=== PATIENT | female | born 1955 | race Caucasian/White ===

== ENCOUNTER → 2016-07-19 | Outpatient (CLI) | payer MEDICARE, OTHER ==
--- NOTE | 2016-07-19 09:16 | CT ---
EXAMINATION TYPE: CT abdomen pelvis w con DATE OF EXAM: 07/19/2016 8:36 AM COMPARISON: NONE HISTORY: 60-year-old female generalized abdominal pain. TECHNIQUE: Contiguous axial scanning of the abdomen and pelvis following administration of 100 ml Omn ipaque 300 IV contrast. Delayed images through the kidneys and coronal/sagittal reconstructions perf ormed. CT DLP: 1459 mGycm Automated exposure control for dose reduction was used. FINDINGS: The heart is normal size without pericardial effusion. Some strandy atelectasis at the peripheral bas ilar left lower lobe and some patchy atelectasis inferior lingula. No pleural effusion. Moderate to large hiatal hernia. No focal liver lesion or biliary ductal dilatation. Portal venous system is patent. Adrenal glands, kidneys, spleen, and pancreas appear within normal limits. Symmetric uptake and excre tion of contrast by both kidneys. Tiny fatty umbilical hernia. No dilated small bowel, free fluid, or free air. There is some fold thickening seen at the hepatic flexure, refer to sagittal image 21 and 23. There i s scattered colonic diverticulosis but no clear inflammatory change centered at a diverticulum to sug gest acute diverticulitis. Oral contrast has progressed to the distal sigmoid. No significant stool b urden. A few nonenlarged to borderline enlarged right mesenteric lymph nodes are present measuring up to 6 m m, axial image 39 and coronal image 29. Bladder is urine distended. Uterus and ovaries are visualized. No abnormal fluid collection in the pe lvis or pelvic lymphadenopathy. Pelvic phleboliths are present. Bones: Mild degenerative changes at the hips. Nonspecific 2.1 cm sclerotic lesion within the left sac rum, axial image 52. Degenerative changes mid to lower lumbar spine. No osseous destructive process. IMPRESSION: 1. SOME MILD FOLD THICKENING AT THE HEPATIC FLEXURE AND SOME BORDERLINE ENLARGED RIGHT ABDOMINAL MESE NTERIC LYMPH NODES WHICH ARE PROBABLY REACTIVE. CORRELATE FOR A MILD NONSPECIFIC COLITIS. FOLLOW-UP C OLONOSCOPY IF ROUTINE SCREENING NOT ALREADY PERFORMED. 2. A 2.1 CM SCLEROTIC LESION WITHIN THE LEFT SACRUM HAS OVERALL NONAGGRESSIVE FEATURES. A BENIGN ENTI TY IS FAVORED. EITHER [address] MONTH FOLLOW-UP CT OR BONE SCAN CAN BE CONSIDERED. 3. BACKGROUND OF MILD DIFFUSE COLONIC DIVERTICULOSIS. 4. MODERATE TO LARGE HIATAL HERNIA.
== END | disposition home or self-care (01) ==
LOC: RADCTMAIN 08:06
PROVIDERS: ATTEND Internal Medicine Hematology & Oncology
DX: K63.89 Other specified diseases of intestine (principal); K44.9 Diaphragmatic hernia without obstruction or gangrene; R10.84 Generalized abdominal pain
CPT/HCPCS: 74177; Q9967

== ENCOUNTER → 2016-08-03 | Outpatient (CLI) | payer MEDICARE, OTHER ==
[2016-08-03 17:58] LABS: Basophils # (A) 0.1 k/uL (0-0.2); Basophils % (A) 1 %; CH 23.6; Eosinophils # (A) 0.1 k/uL (0-0.7); Eosinophils % (A) 2 %; HCT 33.2 % (34.0-46.0); HDW 3.13; HGB 9.8 gm/dL (11.4-16.0); Hypochromasia Marked; Luc # (Auto) 0.14; Luc % (Auto) 2; Lymphocytes # (A) 2.1 k/uL (1.0-4.8); Lymphocytes % (A) 31 %; MCH 24.2 pg (25.0-35.0); MCHC 29.6 g/dL (31.0-37.0); MCV 81.9 fL (80.0-100.0); Mean Platelet Volume 6.8; Monocytes # (A) 0.4 k/uL (0-1.0); Monocytes % (A) 6 %; Neutrophils # (A) 3.8 k/uL (1.3-7.7); Neutrophils % (A) 58 %; RBC 4.06 m/uL (3.80-5.40); RDW 15.9 % (11.5-15.5); WBC 6.6 k/uL (3.8-10.6); WBC (Perox) 7.06
== END | disposition home or self-care (01) ==
LOC: LABWHC1 17:04
PROVIDERS: ATTEND Surgery
DX: K63.89 Other specified diseases of intestine (principal)
CPT/HCPCS: 36415; 82378; 85025

== ENCOUNTER → 2016-08-12 | Outpatient (CLI) | payer MEDICARE, OTHER ==
[2016-08-12 11:34] LABS: EKG EKG PERFORMED
[2016-08-12 12:34] LABS: Anion Gap 14 mmol/L; Carbon Dioxide 24 mmol/L (22-30); Chloride 102 mmol/L (98-107); Potassium 4.7 mmol/L (3.5-5.1); Sodium 140 mmol/L (137-145)
== END | disposition home or self-care (01) ==
LOC: LABWHC1 11:08
PROVIDERS: ATTEND Surgery
DX: Z01.810 Encounter for preprocedural cardiovascular examination (principal); Z01.812 Encounter for preprocedural laboratory examination
CPT/HCPCS: 36415; 80051; 86850; 86900; 86901; 93005

== ENCOUNTER 2016-08-15 10:02 | Inpatient (IN) | payer MEDICARE, OTHER ==
--- NOTE | 2016-08-12 17:25 | P.GSHP ---
History of Present Illness H&P Date: 08/12/16 Chief Complaint: RIGHT colon mass Patient is known to our service. She underwent a colonoscopy and upper endoscopy on July 26. She was found to have a 3 cm mass involving the ileocecal valve. Biopsies were benign.. A recent CAT scan had been performed which showed some thickening of the colon the hepatic flexure. Upon my review the ileocecal valve does appear prominent. Radiology also mentioned the presence of a mesenteric lymph node on the RIGHT. Her CEA level is normal. She was having complaints of abdominal pain and colon cancer screening. Recently has been anemic. Most recent hemoglobin 9.8.Denies any family history of colon cancer. 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 History of Any Multi-Drug Resistant Organisms: None Reported Past Surgical History: Adenoidectomy, Orthopedic Surgery, Tonsillectomy Additional Past Surgical History / Comment(s): AMPUTATION LITTLE AND RING FINGER LEFT HAND, (2012), ARTHROSCOPIC KNEE SURGERY., Past Anesthesia/Blood Transfusion Reactions: No Reported Reaction Past Psychological History: No Psychological Hx Reported Smoking Status: Never smoker Past Alcohol Use History: Rare Past Drug Use History: None Reported - Past Family History Mother Family Medical History: No Reported History Medications and Allergies Home Medications Medication Instructions Recorded Confirmed Type Ferrous Sulfate [Feosol] 325 mg PO DAILY 08/11/16 08/11/16 History Lisinopril [Zestril] 10 mg PO HS 08/11/16 08/11/16 History Omeprazole [PriLOSEC] 20 mg PO AC-BRKFST 08/11/16 08/11/16 History Pravastatin Sodium [Pravachol] 40 mg PO HS 08/11/16 08/11/16 History Allergies Allergy/AdvReac Type Severity Reaction Status Date / Time No Known Allergies Allergy Verified 08/11/16 15:09 Surgical - Exam GENERAL: Well-developed, well-nourished HEENT: Normocephalic, sclera nonicteric, EOM intact, no swelling CHEST: No deformities ABDOMEN: Soft, nontender, nondistended EXTREMITIES: No deformities, motor grossly intact NEURO: Awake and alert Assessment and Plan (1) Colonic mass Narrative/Plan: Clinical scenario was discussed in detail with the patient and her family. Despite the negative biopsies the presence of this suspicious lesion in the RIGHT colon is an indication for surgical resection. The options of open versus laparoscopic approach were discussed. She and I decided to proceed with a laparoscopic RIGHT colectomy, possible open RIGHT colectomy. The risks of bleeding, infection, duodenal injury, ureteral injury, abscess, anastomotic dehiscence, conversion, hernia, chronic diarrhea, and potential benign etiologies in the specimen were discussed. She understands and wishes to proceed. Status: Acute
[~2016-08-15 10:02] MED LIST: ACETAMINOPHEN TAB 500 MG TAB PO ONE; ALVIMOPAN 12 MG CAPSULE PO ONE; DEXAMETHASONE SOD PHOSPHATE 10 MG/ML 1 ML VIAL IV ONE; HEPARIN SODIUM,PORCINE 5,000 UNIT/ML 1 ML VIAL SQ ONE; HYDROmorphone 1 MG/ML 1 ML SYRINGE IVP PRN; LIDOCAINE 1% 20 ML VIAL (10MG/ML) FOR IV START INTRADERMA PRN; MIDAZOLAM 2 MG/2 ML VIAL IV PRN; ONDANSETRON 4 MG/2 ML VIAL IVP ONE; SCOPOLAMINE 1.5MG/72HR PATCH TRANSDERM ONE; ceFAZolin 2 GM in SODIUM CHLORIDE 0.9% 100 ML IVPB ONE; metroNIDAZOLE-NS PMX 500 MG in SALINE 1 100ML.BAG IVPB ONE
[2016-08-15] MEDS: LACTATED RINGERS 1,000 ML IV SCH ×2 (11:30→23:57)
[2016-08-15] MEDS ORDERED: PROPOFOL 10 MG/ML 20 ML VIAL IV ONE (13:27)
[2016-08-15] MEDS ORDERED: HYDROmorphone (PF) 1 MG/ML ONE (13:27)
[2016-08-15] MEDS ORDERED: GLYCOPYRROLATE 0.2 MG/ML 2 ML VIAL ONE (13:27)
[2016-08-15] MEDS ORDERED: ROCURONIUM BROMIDE 10 MG/ML 10 ML VIAL IV ONE (13:27)
[2016-08-15] MEDS ORDERED: SUCCINYLCHOLINE CHLORIDE 100 MG/5 ML SYR IV ONE (13:27)
[2016-08-15] MEDS ORDERED: MIDAZOLAM 2 MG/2 ML VIAL ONE (13:27)
[2016-08-15] MEDS ORDERED: NEOSTIGMINE 1 MG/ML 10 ML VIAL ONE (13:27)
[2016-08-15] MEDS ORDERED: fentaNYL (PF) 50 MCG/ML 2 ML AMP ONE (13:27)
[2016-08-15] MEDS ORDERED: LIDOCAINE 1% INJ 10MG/ML (20 ML MDV) ONE (13:27)
[2016-08-15] MEDS ORDERED: BUPIVACAIN-EPI 0.25%-1:200,000 30 ML VIAL SQ ONE ×2 (13:58)
[2016-08-15] MEDS ORDERED: LACTATED RINGERS 1,000 ML IV ONE (15:59)
[2016-08-15] MEDS ORDERED: METOCLOPRAMIDE 5 MG/ML 2 ML VIAL IVP PRN (17:01)
[2016-08-15] MEDS ORDERED: ONDANSETRON 4 MG/2 ML VIAL IVP PRN (17:01)
--- NOTE | 2016-08-15 17:11 | P.OP ---
Date of Procedure: 08/15/16 Procedure(s) Performed: PREOPERATIVE DIAGNOSIS: Right colon lesion POSTOPERATIVE DIAGNOSIS: Same PROCEDURE: Laparoscopic right colectomy with hand assistance SURGEON: Will EBL: 50ML ANESTHESIA: General COMPLICATIONS: None OPERATIVE PROCEDURE: The patient was placed in the operating table in the supine position. She was placed under general anesthesia that time. A Stapleton catheter was placed. The patient was placed on the huggy vac. The arms were tucked. The abdomen was prepped and draped in the usual sterile fashion. A vertical supraumbilical incision was made using the scalpel. The fascia was retracted anteriorly with Nakul forceps. The Veress needle was advanced into the peritoneal cavity and pneumoperitoneum was achieved up to 15 monitor mercury. A 5 mm trocar was then placed. This was later switched to a 12 mm trocar under direct visualization. 3 additional 5 mm trochars were placed under direct visualization one on the right upper quadrant, one in the suprapubic location, and one in the left lower quadrant. The greater omentum was retracted cephalad. The cecum and ascending colon were inspected. The cecum itself appeared normal. There was no evidence of any peritoneal implants. The liver appeared normal. The adjacent colon was retracted anteriorly. In this manner the right colic vasculature was tented nicely. Superficial cautery was used on the mesentery. The right colic vasculature was then bluntly dissected. I then divided the right colic artery using a 45 mm white Endo ROSE. Further blunt dissection took place in the retrocolic space. The right ureter was identified. The lateral attachments to the colon and the distal small bowel were lysed using a combination of blunt dissection cautery and the LigaSure device. The hepatic flexure was mobilized in a similar fashion. The gastrocolic ligament was divided using the ligature. Further dissection of the mesentery was divided using the LigaSure device. At this time I felt that we had good mobilization of the entire right colon and terminal ileum. Care was taken to avoid the use of electrocautery near the duodenum which was easily identified throughout the case. The subumbilical incision was then lengthened. The incision made was approximately 4-5cm. Dissection down through the subcutaneous tissue took place using the cautery. The fascia was divided in the midline using electrocautery. The small Saman wound retractor was utilized. At this point attempts at withdrawing the bowel through the small Saman wound protector was unsuccessful and it was determined that there was some of the hepatic flexure still adherent. I then lengthened the fascia slightly and the GelPort was placed. Using hand assistance I was unable to mobilize the remainder of the hepatic flexure without difficulty using the LigaSure device. I then removed the pneumoperitoneum once again. The GelPort was removed. The bowel that had been fully mobilized was brought out through this incision site. The mid transverse colon was divided using a linear 75 stapler. The terminal ileum was then divided in a similar fashion. The specimen was sent to pathology for close examination. A [id number]-da-dujh anastomosis then took place. The antimesenteric portion of the staple line was excised. Through this defect the 75 linear stapler was placed and a side-to- side anastomosis took place along the tenia on the transverse colon and the antimesenteric border of the small intestine. A 3-0 GI silk crotch stitch was placed. The anastomosis was completed by firing a TA stapler. The TA staple line was imbricated using 3-0 GI silk sutures as well. No bleeding was seen. The bowel was reduced back into the peritoneal cavity. The fish bowel protector was utilized. Our gloves were changed at that time. The fascia was then closed using a running double-stranded #1 PDS suture. The sub-cutaneous tissues reapproximated using interrupted 3-0 Vicryl sutures and the skin using a running 4-0 Monocryl stitch. Steri-Strips and sterile dressings then applied. At the end of the procedure the sponge needle and instrument counts were correct. DISPOSITION: Stable to recovery room
[2016-08-15 20:01] LABS: Anisocytosis Slight; Basophils % (A) 0 %; CH 24.5; CHCM 29.9; Eosinophils % (A) 0 %; HCT 32.8 % (34.0-46.0); HDW 2.92; Hypochromasia Marked; Luc # (Auto) 0.03; Luc % (Auto) 0; Lymphocytes # (A) 0.4 k/uL (1.0-4.8); Lymphocytes % (A) 3 %; MCHC 30.5 g/dL (31.0-37.0); Mean Platelet Volume 6.9; Monocytes # (A) 0.2 k/uL (0-1.0); Monocytes % (A) 2 %; Neutrophils # (A) 11.6 k/uL (1.3-7.7); Neutrophils % (A) 94 %; RDW 17.5 % (11.5-15.5); WBC 12.3 k/uL (3.8-10.6); WBC (Perox) 12.27
[2016-08-15 20:19] LABS: Anion Gap 8 mmol/L; Blood Urea Nitrogen 10 mg/dL (7-17); Calcium 9.1 mg/dL (8.4-10.2); Carbon Dioxide 24 mmol/L (22-30); Chloride 103 mmol/L (98-107); Glucose 162 mg/dL (74-99); Non-African American GFR(MDRD) >60 (>60 ml/min/1.73 sqM); Potassium 4.1 mmol/L (3.5-5.1); Sodium 135 mmol/L (137-145)
[2016-08-15] MEDS: FAMOTIDINE 20 MG/2 ML VIAL IV SCH (20:42)
[2016-08-15] MEDS: HYDROmorphone 1 MG/ML 1 ML SYRINGE IVP PRN (20:50)
[2016-08-15] MEDS: HEPARIN SODIUM,PORCINE 5,000 UNIT/ML 1 ML VIAL SQ SCH (23:58)
[2016-08-16] MEDS: HYDROmorphone 1 MG/ML 1 ML SYRINGE IVP PRN ×2 (04:51→08:58)
[2016-08-16] MEDS: FAMOTIDINE 20 MG/2 ML VIAL IV SCH ×2 (09:01→20:45)
[2016-08-16] MEDS: ALVIMOPAN 12 MG CAPSULE PO SCH ×2 (09:01→20:45)
[2016-08-16] MEDS: HEPARIN SODIUM,PORCINE 5,000 UNIT/ML 1 ML VIAL SQ SCH ×3 (09:01→23:32)
[2016-08-16] MEDS ORDERED: KETOROLAC 30 MG/ML 1 ML VIAL IVP PRN (12:21)
--- NOTE | 2016-08-16 16:13 | CONS ---
DATE OF CONSULTATION: REASON FOR CONSULTATION: Leukocytosis, management of hypertension. Patient is admitted for elective colectomy and end-to-end anastomosis for a benign lesion. Patient is clinically doing well. Patient denied any fever, chills, nausea, vomiting, abdominal pain. Denied any light-headedness. REVIEW OF SYSTEMS: CONSTITUTIONAL: No fever, no malaise, no fatigue. HEENT: No recent visual problems or hearing problems. Denied any sore throat. CARDIOVASCULAR: No chest pain, orthopnea, PND, no palpitations, no syncope. PULMONARY: No shortness of breath, no cough, no hemoptysis. GASTROINTESTINAL: No diarrhea, no nausea, no vomiting, no abdominal pain. Normoactive bowel sounds. NEUROLOGICAL: No headaches, no weakness, no numbness. HEMATOLOGICAL: Denies any bleeding or petechiae. GENITOURINARY: Denies any burning micturition, frequency, or urgency. MUSCULOSKELETAL/RHEUMATOLOGICAL: Denies any joint pain, swelling, or any muscle pain. ENDOCRINE: Denies any polyuria or polydipsia. The rest of the 14 point review of systems is negative. PAST MEDICAL HISTORY: 1. Gastroesophageal reflux disease. 2. Hyperlipidemia. 3. Hypertension. 4. Osteoarthritis. SOCIAL HISTORY: Denied any smoking, alcohol abuse or any drug abuse. FAMILY HISTORY: No significant family history. Denied any family history of hypertension, diabetes mellitus. HOME MEDICATIONS: 1. Ferrous sulfate. 2. Lisinopril. 3. Omeprazole. 4. Pravastatin. ALLERGIES: NO KNOWN DRUG ALLERGIES. PHYSICAL EXAMINATION: VITAL SIGNS: Temperature 98.2, pulse of 90, respiratory rate of 16. Blood pressure is 117/60. Saturating at 95% on 2 L of oxygen by nasal cannula. GENERAL: The patient is alert and oriented x3, not in any acute distress. Well developed, well nourished. HEENT: Pupils are round and equally reacting to light. EOMI. No scleral icterus. No conjunctival pallor. Normocephalic, atraumatic. No pharyngeal erythema. No thyromegaly. CARDIOVASCULAR: S1 and S2 present. No murmurs, rubs, or gallops. PULMONARY: Chest is clear to auscultation, no wheezing or crackles. ABDOMEN: Soft, nontender, nondistended, normoactive bowel sounds. No palpable organomegaly. MUSCULOSKELETAL: No joint swelling or deformity. EXTREMITIES: No cyanosis, clubbing, or pedal edema. NEUROLOGICAL: Gross neurological examination did not reveal any focal deficits. SKIN: No rashes. LABORATORY DATA: CBC, CMP are abnormal for elevated WBC count of 12,300, hemoglobin of 10.0. ASSESSMENT AND PLAN: 1. Leukocytosis. Patient does not have any other signs or symptoms of infection. Patient will not require any antibiotics from a medical perspective; preoperative and perioperative antibiotics as per Surgery. 2. Hypertension. Hold off antihypertensives to prevent perioperative hypotension. Patient is on Elliott inhibitor, which will be held. 3. Hyperlipidemia. Continue with statin. Pain management and DVT prophylaxis as per primary service. Thank you for letting me participate in this patient's care. Will continue to follow the patient on an as-needed basis.
--- NOTE | 2016-08-16 18:25 | P.PN ---
Subjective Principal diagnosis: Colon mass Patient doing well today. Abdominal pain is controlled with Toradol. No flatus. No nausea or vomiting. She is ambulating. White blood cell count slightly elevated. Objective - Vital Signs Vital signs: Vital Signs Temp 98.6 F 08/16/16 16:00 Pulse 76 08/16/16 16:00 Resp 16 08/16/16 16:00 BP 131/85 08/16/16 16:00 Pulse Ox 99 08/16/16 16:00 Intake & Output 08/15/16 08/16/16 08/16/16 18:59 06:59 18:59 Intake Total 3000 Output Total 940 590 4330 Balance 2350 -800 -1100 Weight 88.451 kg 88.451 kg Intake: IV 3000 Output: Urine 568 166 1838 Uretheral (Stapleton) 800 700 Estimated Blood Loss 50 Other: Voiding Method Indwelling Catheter Toilet # Voids 3 - Exam Abdomen: Soft, mild tenderness, incision with dressing intact - Labs CBC & Chem 7: 08/15/16 19:50 08/15/16 19:50 Labs: Abnormal Lab Results - Last 24 Hours (Table) 08/15/16 08/15/16 Range/Units 19:50 19:50 WBC 12.3 H (3.8-10.6) k/uL Hgb 10.0 L (11.4-16.0) gm/dL Hct 32.8 L (34.0-46.0) % MCHC 30.5 L (31.0-37.0) g/dL RDW 17.5 H (11.5-15.5) % Neutrophils # 11.6 H (1.3-7.7) k/uL Lymphocytes # 0.4 L (1.0-4.8) k/uL Sodium 135 L (137-145) mmol/L Glucose 162 H (74-99) mg/dL Assessment and Plan (1) Colonic mass Narrative/Plan: Continue clear liquid diet for now. Increase activity levels. Recheck labs in a.m. Status: Acute
[2016-08-16] MEDS: HYDROcodone/APAP 5-325MG 1 EACH TAB PO PRN ×2 (18:54→23:40)
[2016-08-16] MEDS: KETOROLAC 30 MG/ML 1 ML VIAL IVP SCH (23:32)
[2016-08-16] MEDS: LACTATED RINGERS 1,000 ML IV SCH (23:33)
[2016-08-17] MEDS: KETOROLAC 30 MG/ML 1 ML VIAL IVP SCH ×4 (05:15→23:47)
[2016-08-17] MEDS: HYDROcodone/APAP 5-325MG 1 EACH TAB PO PRN ×3 (07:01→19:39)
[2016-08-17] MEDS: HEPARIN SODIUM,PORCINE 5,000 UNIT/ML 1 ML VIAL SQ SCH ×3 (09:05→23:47)
[2016-08-17] MEDS: ALVIMOPAN 12 MG CAPSULE PO SCH ×2 (09:05→19:57)
[2016-08-17] MEDS: FAMOTIDINE 20 MG/2 ML VIAL IV SCH ×2 (09:06→19:57)
[2016-08-17 13:03] LABS: Anisocytosis Slight; Basophils % (A) 1 %; CH 24.4; CHCM 29.6; Eosinophils # (A) 0.1 k/uL (0-0.7); Eosinophils % (A) 1 %; HCT 29.3 % (34.0-46.0); HDW 2.85; HGB 8.8 gm/dL (11.4-16.0); Hypochromasia Marked; Luc # (Auto) 0.11; Luc % (Auto) 2; Lymphocytes % (A) 30 %; MCH 24.9 pg (25.0-35.0); MCV 82.8 fL (80.0-100.0); Mean Platelet Volume 6.8; Monocytes # (A) 0.4 k/uL (0-1.0); Monocytes % (A) 5 %; Neutrophils # (A) 4.2 k/uL (1.3-7.7); Neutrophils % (A) 62 %; RBC 3.54 m/uL (3.80-5.40); RDW 17.9 % (11.5-15.5); WBC 6.7 k/uL (3.8-10.6); WBC (Perox) 6.93
[2016-08-17 13:24] LABS: Anion Gap 7 mmol/L; Blood Urea Nitrogen 8 mg/dL (7-17); Calcium 9.1 mg/dL (8.4-10.2); Carbon Dioxide 28 mmol/L (22-30); Chloride 103 mmol/L (98-107); Glucose 92 mg/dL (74-99); Non-African American GFR(MDRD) >60 (>60 ml/min/1.73 sqM); Potassium 3.9 mmol/L (3.5-5.1); Sodium 138 mmol/L (137-145)
--- NOTE | 2016-08-17 18:03 | P.PN ---
Subjective Principal diagnosis: Colon mass Patient feels well today. No bowel activity thus far. Minimal discomfort. She is afebrile. Labs are reviewed. Objective - Vital Signs Vital signs: Vital Signs Temp 96.8 F L 08/17/16 15:29 Pulse 82 08/17/16 15:29 Resp 16 08/17/16 15:29 BP 143/65 08/17/16 15:29 Pulse Ox 95 08/17/16 15:29 Intake & Output 08/16/16 08/17/16 08/17/16 18:59 06:59 18:59 Intake Total 350 Output Total 1100 Balance -1100 350 Weight 88.451 kg Intake: Oral 350 Output: Urine 1100 Uretheral (Stapleton) 700 Other: Voiding Method Toilet Toilet # Voids 3 1 1 - Exam Abdomen: Soft, nondistended, mild tenderness, incision clean and dry - Labs CBC & Chem 7: 08/17/16 12:26 08/17/16 12:26 Labs: Abnormal Lab Results - Last 24 Hours (Table) 08/17/16 Range/Units 12:26 RBC 3.54 L (3.80-5.40) m/uL Hgb 8.8 L (11.4-16.0) gm/dL Hct 29.3 L (34.0-46.0) % MCH 24.9 L (25.0-35.0) pg MCHC 30.0 L (31.0-37.0) g/dL RDW 17.9 H (11.5-15.5) % Assessment and Plan (1) Colonic mass Narrative/Plan: Gradually advanced diet. Continue ambulation. Pathology results were reviewed. Still suspect the ulceration in the lipoma to be the likely source of recent anemia. Status: Acute
[2016-08-17] MEDS: LISINOPRIL 10 MG TAB PO SCH (19:58)
[2016-08-18] MEDS: KETOROLAC 30 MG/ML 1 ML VIAL IVP SCH (05:51)
[2016-08-18] MEDS: LACTATED RINGERS 1,000 ML IV SCH ×2 (07:05→23:11)
[2016-08-18] MEDS: HEPARIN SODIUM,PORCINE 5,000 UNIT/ML 1 ML VIAL SQ SCH ×3 (08:32→23:09)
[2016-08-18] MEDS: ALVIMOPAN 12 MG CAPSULE PO SCH ×2 (08:32→20:59)
[2016-08-18] MEDS: FAMOTIDINE 20 MG/2 ML VIAL IV SCH ×2 (08:32→20:59)
[2016-08-18] MEDS: HYDROcodone/APAP 5-325MG 1 EACH TAB PO PRN ×2 (10:05→15:14)
--- NOTE | 2016-08-18 12:57 | P.PN ---
Subjective Principal diagnosis: Colon mass Patient feeling well. She did have a bowel movement earlier today. Pain is well-controlled. She is ambulating. Objective - Vital Signs Vital signs: Vital Signs Temp 97.9 F 08/18/16 07:53 Pulse 86 08/18/16 07:53 Resp 17 08/18/16 07:53 BP 165/74 08/18/16 07:53 Pulse Ox 94 L 08/18/16 11:44 Intake & Output 08/17/16 08/18/16 08/18/16 18:59 06:59 18:59 Intake Total 350 1100 360 Balance 350 1100 360 Intake: Intake, IV Titration 900 Amount Lactated Ringers 1,000 ml 900 @ 20 mls/hr IV .Q24H CHRIS Rx#:[id number] Oral 350 200 360 Other: Voiding Method Toilet # Voids 1 1 - Exam Abdomen: Soft, nondistended, mild tenderness, incisions clean and dry - Labs CBC & Chem 7: 08/17/16 12:26 08/17/16 12:26 Labs: Abnormal Lab Results - Last 24 Hours (Table) 08/17/16 Range/Units 12:26 RBC 3.54 L (3.80-5.40) m/uL Hgb 8.8 L (11.4-16.0) gm/dL Hct 29.3 L (34.0-46.0) % MCH 24.9 L (25.0-35.0) pg MCHC 30.0 L (31.0-37.0) g/dL RDW 17.9 H (11.5-15.5) % Assessment and Plan (1) Colonic mass Narrative/Plan: Advance diet to low fiber. May shower today. Pathology reviewed. Status: Acute
[2016-08-18] MEDS: LISINOPRIL 10 MG TAB PO SCH (21:00)
[2016-08-19] MEDS: HYDROcodone/APAP 5-325MG 1 EACH TAB PO PRN (00:08)
[2016-08-19 05:27] VITALS: RESP 16
[2016-08-19 07:47] VITALS: BP 123/77; PULSE 91; TEMP 98
[2016-08-19 08:18] LABS: Anisocytosis Slight; Basophils # (A) 0.1 k/uL (0-0.2); Basophils % (A) 1 %; CH 24.4; CHCM 29.5; Eosinophils # (A) 0.2 k/uL (0-0.7); Eosinophils % (A) 3 %; HCT 33.7 % (34.0-46.0); HDW 2.81; HGB 10.1 gm/dL (11.4-16.0); Hypochromasia Marked; Luc % (Auto) 2; Lymphocytes # (A) 1.4 k/uL (1.0-4.8); Lymphocytes % (A) 21 %; MCH 24.9 pg (25.0-35.0); MCHC 30.1 g/dL (31.0-37.0); MCV 82.7 fL (80.0-100.0); Mean Platelet Volume 6.4; Monocytes # (A) 0.4 k/uL (0-1.0); Monocytes % (A) 5 %; Neutrophils # (A) 4.6 k/uL (1.3-7.7); Neutrophils % (A) 68 %; RBC 4.07 m/uL (3.80-5.40); RDW 17.7 % (11.5-15.5); WBC 6.8 k/uL (3.8-10.6); WBC (Perox) 7.68
[2016-08-19] MEDS: HEPARIN SODIUM,PORCINE 5,000 UNIT/ML 1 ML VIAL SQ SCH (08:40)
[2016-08-19] MEDS: ALVIMOPAN 12 MG CAPSULE PO SCH (08:41)
[2016-08-19] MEDS ORDERED: FAMOTIDINE 20 MG TAB PO SCH (09:00)
--- NOTE | 2016-08-19 17:29 | P.DS ---
Providers Date of admission: 08/15/16 10:02 Expected date of discharge: 08/19/16 Attending physician: Chuck Solis Consults: 08/15/16 17:11 Consult Physician Routine Consulting Provider: Jayna Boyle Consult Reason/Comments: Medical management Do you want consulting provider notified?: Yes Primary care physician: Stated None - Discharge Diagnosis(es) (1) Colonic mass Patient was admitted on Monday for a laparoscopic right colectomy. Postoperatively the patient is done well. Her diet was gradually advanced as her ileus improved. Her pain has been fairly well-controlled throughout. She is ambulating without difficulty. She is tolerating her diet at this time. Her incision is clean and dry. Plan is to discharge tonight with outpatient follow-up in 1.5 weeks. Current Visit: Yes Status: Acute Plan - Discharge Summary New Discharge Prescriptions: HYDROcodone/APAP 5-325MG [[place] 5-325] 1 - 2 tab PO Q4H PRN #30 tab PRN Reason: Pain Discharge Medication List Ferrous Sulfate [Feosol] 325 mg PO DAILY 08/11/16 [History] Lisinopril [Zestril] 10 mg PO HS 08/11/16 [History] Omeprazole [PriLOSEC] 20 mg PO AC-BRKFST 08/11/16 [History] Pravastatin Sodium [Pravachol] 40 mg PO HS 08/11/16 [History] HYDROcodone/APAP 5-325MG [[place] 5-325] 1 - 2 tab PO Q4H PRN #30 tab 08/19/16 [Rx ] Follow up Appointment(s)/Referral(s): Chuck Solis MD [Medical Doctor] - 08/31/16 4:00 pm Patient Instructions/Handouts: Low Fiber Diet (DC), Colectomy (DC) Activity/Diet/Wound Care/Special Instructions: No driving until follow-up No heavy, lifting, pushing, or pulling May shower, no bathtubs, pools, or hot tubs Take pain medication as prescribed Report any signs or symptoms of infection (redness, drainage, elevated temp) Low fiber diet Follow-up in 2 weeks as scheduled
--- NOTE | 2016-08-26 15:32 | CDI ---
In responding to this query, please exercise your independent professional judgment. The [facility] Coding Staff and Clinical Documentation Specialists appreciate your assistance in clarifying documentation, maintaining compliance with coding guidelines, accurately documenting patients condition and capturing severity of illness. The fact that a question is asked does not imply that any particular answer is desired or expected. Communication forms are a method of clarifying documentation and are not made part of the Legal Health Record. Thank you in advance for your clarification. Last Revision, June 2015 Loreat Melendez [address] [address] Documentation Clarification Form Date: 08/26/2016 3:23:00 PM From: Violetta Ortiz Admit Date: 08/15/2016 10:02:00 AM Patient Name: Grisel Khan Visit Number: [id number] Discharge Date: 08/26/16 Dr. Chuck Solis In your Discharge Summary, you mentioned ileus. In reviewing the medical record, appears to be no diagnostic workup or treatment (no NG or rectal tube and no ordered diet change). Can you clarify which if any of the below situations accurately describes this ileus in an addendum to your Discharge Summary? The purpose is to demonstrate the acuity accurately via accurate diagnosis code assignment. A complication of the procedure Integral to the above procedure Not clinically significant Other, please specify Clinically unable to determine Please document your response in your discharge summary, along with its associated clinical indicators (i.e., signs, symptoms, findings, treatments, monitoring). If this condition was ruled out or documented in error, please indicate in your progress notes and/or discharge summary. FYI: Press F11 to launch patient chart Place X here if this finding has no clinical significance, is not applicable or if you are not able to provide any additional documentation. LILI Jose, CCS, [facility] Certified I-10 Rn Radiation/[place]/Rn Radiation II If you have any questions or concerns please contact Christiane Varghese, Adult Specialist, Loreta Melendez @ [phone] [facility]
== END 2016-08-20 09:46 | disposition home or self-care (01) | DRG 331 ==
LOC: 2ORWHC 10:02 → 3SUR 16:50
PROVIDERS: ADMIT Surgery; ATTEND Surgery
PROC: 0DTF4ZZ Resection of Right Large Intestine, Percutaneous Endoscopic Approach (ICD-10-PCS; principal; 2016-08-15 12:00)
DX: D17.5 Benign lipomatous neoplasm of intra-abdominal organs (principal); I10 Essential (primary) hypertension; E78.5 Hyperlipidemia, unspecified; D64.9 Anemia, unspecified; K21.9 Gastro-esophageal reflux disease without esophagitis; M20.002 Unspecified deformity of left finger(s); M19.91 Primary osteoarthritis, unspecified site; K44.9 Diaphragmatic hernia without obstruction or gangrene; Z85.830 Personal history of malignant neoplasm of bone; Z79.899 Other long term (current) drug therapy
CPT/HCPCS: 36415; 80048; 80051; 85025; 86850; 86900; 86901; 88307; 93005; 94760